=== PATIENT | male | born 1965 | race Caucasian/White ===

== ENCOUNTER 2018-05-11 17:00 | Emergency (ER) | payer OTHER ==
[2018-05-11 17:15] LABS: #Basophils 0.1 thou/uL (0.0-0.2); #Eosinphils 0.1 thou/uL (0.0-0.7); #Monocytes 0.6 thou/uL (0.11-0.59); #Neutrophils 5.7 thou/uL (1.40-6.50); %Basophils 0.9 % (0.0-1.0); %Lymphocytes 23.6 % (21.0-51.0); %Monocytes 6.7 % (0.0-10.0); %Neutrophils 67.9 % (42.0-75.0); Hemoglobin 14.8 g/dL (14.0-18.0); Mean Corpuscular HGB CONC 34.5 g/dL (32.0-36.0); Mean Corpuscular Hemoglobin 31.5 pg (27.0-31.0); Mean Corpuscular Volume 91.4 fL (78.0-98.0); Mean Platelet Volume 5.8 fL (7.4-10.4); Platelet Count 224 thou/uL (130-400); RBC Distribution Width 12.9 % (11.5-14.5); Red Blood Cell (RBC) Count 4.69 mill/uL (4.70-6.10); White Blood Cell (WBC) Count 8.4 thou/uL (4.8-10.8)
[2018-05-11 17:36] LABS: ALT (SGPT) 29 U/L (8-55); AST (SGOT) 30 U/L (5-34); Albumin 4.2 g/dL (3.5-5.0); Alkaline Phosphatase 63 U/L (40-150); Anion Gap 14 mmol/L (10-20); BUN (Urea Nitrogen) 12 mg/dL (8.4-25.7); Bilirubin, Total 0.6 mg/dL (0.2-1.2); Calc. Creatinine Clearance 0 mL/min (70-130); Calcium 8.8 mg/dL (7.8-10.44); Carbon Dioxide 23 mmol/L (22-29); Chloride 108 mmol/L (98-107); Estimated GFR-MDRD 67; Globulin 2.7 g/dL (2.4-3.5); Glucose 120 mg/dL (70-105); Potassium 4.3 mmol/L (3.5-5.1); Protein, Total 6.9 g/dL (6.0-8.3); Sodium 141 mmol/L (136-145)
--- NOTE | 2018-05-11 17:42 | RAD ---
PORTABLE CHEST: 05/11/18 HISTORY: Chest pain. Lung orona are clear. No infiltrate. Vascular markings upper normal. Heart size is upper normal. IMPRESSION: No acute process identified. POS: [facility]
[2018-05-11 17:45] LABS: Troponin I Less than 0.010 ng/mL (< 0.028)
== END 2018-05-11 18:00 | disposition short-term general hospital (02) ==
LOC: ERS 17:00
DX: T20.26XA Burn of second degree of forehead and cheek, initial encounter (principal); T20.212A Burn of second degree of left ear [any part, except ear drum], initial encounter; T20.22XA Burn of second degree of lip(s), initial encounter; T23.201A Burn of second degree of right hand, unspecified site, initial encounter; K21.9 Gastro-esophageal reflux disease without esophagitis; I25.10 Atherosclerotic heart disease of native coronary artery without angina pectoris; Z79.82 Long term (current) use of aspirin; Z79.899 Other long term (current) drug therapy; X08.8XXA Exposure to other specified smoke, fire and flames, initial encounter
CPT/HCPCS: 36415; 71045; 80053; 82553; 83605; 84484; 85025; 96360; G0390